=== PATIENT | female | born 1960 | race Two or more races ===

== ENCOUNTER → 2018-12-25 | Day surgery (SDC) | payer OTHER ==
[~2018-12-25] MED LIST: HYDROmorphone 2 MG/ML VIAL IV PRN; IV RINGERS,LACTATED 1000ML 1,000 ML IV SCH; LIDOCAINE 1% PF 2 ML VIAL. ID PRN; MORPHINE SULFATE 2 MG/ML VIAL. IV PRN; ONDANSETRON PF 4 MG/2 ML VIAL. IV PRN; PROCHLORPERAZINE 10 MG/2 ML VIAL. IV PRN; PROPOFOL 60 ML IV ONE; fentaNYL PF VIAL 100 MCG/2 ML VIAL IV PRN
[2018-12-25 13:17] VITALS: BP 128/68
--- NOTE | 2018-12-26 16:07 | PATHOLOGY ---
[facility] Accession Number: [id number] . 01 Material submitted: . SIMGOID COLON POLYP . 01 Clinical history: . Colon screening . 02 Diagnosis: Colon biopsy, sigmoid colon polyp: - Ganglioneuroma. (JPM:tyrone; 12/26/2018) QMS/12/26/2018 . 02 Comment: There are no adenomatous changes or evidence of malignancy. . 02 Electronically signed: . Royer Stoddard MD, Pathologist NPI- [id number] . 01 Gross description: . Received in formalin labeled "Za [place], sigmoid colon polyp," is a single segment of ramsey soft tissue measuring 0.3 cm in maximum dimension. The specimen is entirely submitted in cassette A1. (TSD; 12/25/2018) TOB/TOB . 02 Pathologist provided ICD-10: D36.10 . 02 CPT . 371893 Specimen Comment: A courtesy copy of this report has been sent to Specimen Comment: [phone], . Specimen Comment: Report sent to / DR DIAMOND Specimen Comment: A duplicate report has been generated due to demographic updates. Performed at: 01 [facility] [address] [facility] [address], [place] [id number] MD Srinivas Dan MD Phone: [phone] Performed at: 02 [facility] [address] [place], [place] [id number] MD Royer Stoddard MD Phone: [phone]
== END | disposition home or self-care (01) ==
LOC: SURG 11:10
PROVIDERS: ATTEND Internal Medicine
DX: Z12.11 Encounter for screening for malignant neoplasm of colon (principal); D36.15 Benign neoplasm of peripheral nerves and autonomic nervous system of abdomen; K64.0 First degree hemorrhoids; K64.8 Other hemorrhoids; Z90.721 Acquired absence of ovaries, unilateral; E78.00 Pure hypercholesterolemia, unspecified; Z82.49 Family history of ischemic heart disease and other diseases of the circulatory system; Z72.0 Tobacco use; Z98.51 Tubal ligation status
CPT/HCPCS: 45380; J2704